=== PATIENT | female | born 1985 | race Native Hawaiian/Other Pacific Islander ===

== ENCOUNTER → 2020-10-04 | Outpatient (CLI) | payer BC, OTHER ==
[~2020-10-04] MED LIST: FLUT0.05 NAS; LEVO0.0218 PO; Z-PAK PO
== END ==
LOC: INF 08:00
PROVIDERS: ATTEND Internal Medicine
DX: Z23 Encounter for immunization (principal)
CPT/HCPCS: 96372

== ENCOUNTER 2020-10-28 14:48 | Outpatient (CLI) | payer BC, OTHER | END 2020-10-28 23:10 | disposition home or self-care (01) | LOC: INF 14:48 | PROVIDERS: ATTEND Internal Medicine | DX: Z23 Encounter for immunization (principal) | CPT/HCPCS: 96372 ==